=== PATIENT | male | born 1950 | race Caucasian/White ===

== ENCOUNTER 2016-09-04 04:35 | Day surgery (SDC) | payer MEDICARE, BC ==
[~2016-09-04 04:35] MED LIST: CELEBREX2 PO; FOLIC PO; INDOCIN SR75 MG PO; LOTREL1 CA3 PO; P1 PO; P5 PO; PRILO PO; ULTRAM50 PO
[2016-09-15] MEDS ORDERED: MULTI-VIT HP PO (11:52)
[2016-09-15] MEDS ORDERED: OCUVITE PO (11:52)
[2016-09-15] MEDS ORDERED: NEUR300 PO (11:52)
[2016-11-11] MEDS ORDERED: ULTRAM50 PO (08:03)
[2016-11-11] MEDS ORDERED: NORCO1 TAB PO (08:03)
[2016-11-11] MEDS ORDERED: PRILO PO (08:04)
[2016-11-11] MEDS ORDERED: LOTREL1 CA5 PO (08:04)
[2016-11-11] MEDS ORDERED: P1 PO (08:05)
[2016-11-11] MEDS ORDERED: REFRESH OPH SO0.3 ML OPH (08:06)
[2016-11-11] MEDS ORDERED: CENTRUM PO (08:07)
[2016-11-11] MEDS ORDERED: PRESERVISION A1 EACH PO (08:07)
[2016-11-12] MEDS ORDERED: PCET PO (11:24)
[2016-11-12] MEDS ORDERED: PYR200 PO (11:25)
[2016-11-18] MEDS ORDERED: BUSPAR15 M1 PO (11:22)
== END 2016-09-04 23:59 | disposition home or self-care (01) ==
LOC: SDC 04:35
PROVIDERS: Orthopaedic Surgery
PROC: 3E0R3BZ Introduction of Anesthetic Agent into Spinal Canal, Percutaneous Approach (ICD-10-PCS; 2016-09-04)
PROC: B01BYZZ Fluoroscopy of Spinal Cord using Other Contrast (ICD-10-PCS; 2016-09-04)
PROC: 3E0R33Z Introduction of Anti-inflammatory into Spinal Canal, Percutaneous Approach (ICD-10-PCS; principal; 2016-09-04 07:45)
DX: M54.16 Radiculopathy, lumbar region (principal); Z79.899 Other long term (current) drug therapy; Z98.890 Other specified postprocedural states; Z90.49 Acquired absence of other specified parts of digestive tract; Z87.442 Personal history of urinary calculi; Z98.41 Cataract extraction status, right eye; Z98.42 Cataract extraction status, left eye; Z90.89 Acquired absence of other organs; Z96.652 Presence of left artificial knee joint
CPT/HCPCS: J1040; J2250; J2405; J3010; Q9967